=== PATIENT | male | born 1965 | race Native Hawaiian/Other Pacific Islander ===

== ENCOUNTER 2018-05-08 03:25 | Emergency (ER) | payer OTHER ==
[2018-05-08 03:54] VITALS: RESP 18
[2018-05-08] MEDS ORDERED: Sodium Chloride 0.9% 1,000 ML IV STA ×2 (04:08→05:51)
--- NOTE | 2018-05-08 04:38 | ED PDOC ---
HPI: Abdomen Time Seen by Provider: 05/08/18 04:07 Chief Complaint (Nursing): Abdominal Pain Chief Complaint (Provider): Abdominal Pain History Per: Patient History/Exam Limitations: no limitations Onset/Duration Of Symptoms: Hrs (x14) Outside of [place] travel?: Yes Other Location:: [facility] Current Symptoms Are (Timing): Still Present Context: Travel, Food Additional Complaint(s): 52 y/o Polish male with a Past medical history of edmondson's muscular dystrophy presents to the ED for evaluation of abdominal pain, vomiting and diarrhea. Patient states he is visiting from [facility] and was at [facility] [employer] where he at a hot dog. Patient reports of getting sick while at [place] at approximately 12 this afternoon. Patient subsequently took the [employer] to this area and states he developed non-bloody diarrhea on the train. Patient reports pain is becoming progressively worse. Patient states pain is right-sided and radiates to the back. Patient denies associated fever and medications for pain. In addition, patient reports he is usually largely wheelchair bound. History obtained from [employer]. PMD: In [place] Past Medical History Reviewed: Historical Data, Nursing Documentation, Vital Signs Vital Signs: Last Vital Signs Temp 98.5 F 05/08/18 03:52 Pulse 86 05/08/18 03:52 Resp 18 05/08/18 03:52 BP 168/86 H 05/08/18 03:52 Pulse Ox 97 05/08/18 03:52 - Medical History Other PMH: edmondson's muscular dystrophy - Surgical History Surgical History: No Surg Hx - Family History Family History: States: Unknown Family Hx - Social History Current smoker - smoking cessation education provided: No Alcohol: None Drugs: Denies - Home Medications Home Medications: Ambulatory Orders Medication Instructions Recorded Dicyclomine [Bentyl] 20 mg PO Q12 PRN #20 tab 05/08/18 Ondansetron ODT [Zofran ODT] 4 mg PO Q6H PRN #16 odt 05/08/18 - Allergies Allergies/Adverse Reactions: Allergies Allergy/AdvReac Type Severity Reaction Status Date / Time No Known Allergies Allergy Verified 05/08/18 03:54 Review of Systems ROS Statement: Except As Marked, All Systems Reviewed And Found Negative Constitutional: Negative for: Fever Gastrointestinal: Positive for: Vomiting, Abdominal Pain, Diarrhea Physical Exam - Reviewed Nursing Documentation Reviewed: Yes Vital Signs Reviewed: Yes - Physical Exam Appears: Positive for: Uncomfortable Head Exam: Positive for: ATRAUMATIC, NORMOCEPHALIC Skin: Positive for: Normal Color, Warm, Dry Eye Exam: Positive for: Normal appearance, EOMI, PERRL Neck: Positive for: Normal, Painless ROM Cardiovascular/Chest: Positive for: Regular Rate, Rhythm. Negative for: Murmur Respiratory: Positive for: Normal Breath Sounds. Negative for: Respiratory Distress Gastrointestinal/Abdominal: Positive for: Normal Exam, Tenderness (Tenderness to the right mid-abdominal region), Distended (Mild distention) - Laboratory Results Result Diagrams: 05/08/18 04:27 05/08/18 04:27 - ECG O2 Sat by Pulse Oximetry: 97 (RA) Pulse Ox Interpretation: Normal Medical Decision Making Medical Decision Making: Time: 1426 Impression: 52 y/o male with abdominal pain, vomiting and diarrhea Plan: -- CMP -- Lipase -- ED Urine Dipstick -- CBC with Differentials -- Bentyl 20 mg PO -- Sodium Chloride IV 1000 mls/hr -- Toradol 30 mg IV -- Zofran Inj IV 4 mg -- Heplock Insertion -- Urinalysis Time: 627 -- On re-evaluation, patient reports an improvement of symptoms. Labs demonstrate no clinically significant abnormalities. Patient is stable for discharge with a diagnosis of gastroenteritis. Scribe Attestation: Documented by Harjeet Padilla, acting as a scribe for Rogerio Morales MD. Provider Scribe Attestation: All medical record entries made by the Scribe were at my direction and personally dictated by me. I have reviewed the chart and agree that the record accurately reflects my personal performance of the history, physical exam, medical decision making, and the department course for this patient. I have also personally directed, reviewed, and agree with the discharge instructions and disposition. Disposition - Clinical Impression Clinical Impression: Gastroenteritis - Patient ED Disposition Is Patient to be Admitted: No Counseled Patient/Family Regarding: Studies Performed, Diagnosis, Rx Given - Disposition Disposition: Routine/Home Disposition Time: 06:28 Condition: STABLE Prescriptions: Dicyclomine [Bentyl] 20 mg PO Q12 PRN #20 tab PRN Reason: abdominal pain/diarrhea Ondansetron ODT [Zofran ODT] 4 mg PO Q6H PRN #16 odt PRN Reason: Nausea/Vomiting Instructions: Gastroenteritis (ED) Forms: [employer] (Indonesian)
[2018-05-08 05:07] LABS: BASO # 0.1 K/uL (0.0-0.2); BASO % 0.6 % (0.0-2.0); EOS # 0.2 K/uL (0.0-0.7); EOS % 1.6 % (0.0-4.0); LYMPH # 1.2 K/uL (1.0-4.3); LYMPH % 11.9 % (20.0-40.0); MEAN CELL VOLUME 90.8 fl (80.0-94.0); MEAN CORPUSCULAR HGB CONC 34.1 g/dL (33.0-37.0); MEAN PLATELET VOLUME 10.5 fl (7.2-11.7); MONO # 0.9 K/uL (0.0-0.8); MONO % 8.9 % (0.0-10.0); NEUT # 7.7 K/uL (1.8-7.0); RBC 5.82 Mil/uL (4.40-5.90); RED CELL DISTRIBUTION WIDTH 13.3 % (11.5-14.5)
[2018-05-08 05:50] LABS: ALB/GLOB RATIO 1.3 (1.0-2.1); ALBUMIN 4.7 g/dL (3.5-5.0); ALT/SGPT 181 U/L (21-72); AST/SGOT 174 U/L (17-59); BLOOD UREA NITROGEN 22 mg/dl (9-20); GFR NON-AFRICAN AMERICAN > 60; LIPASE 76 U/L (23-300)
[2018-05-08 06:49] LABS: SQUAMOUS EPITHIAL < 1 /hpf (0-5); URINE BILIRUBIN NEGATIVE (NEGATIVE); URINE BLOOD NEGATIVE (NEGATIVE); URINE CLARITY SLIGHTY-CLOUDY (Clear); URINE COLOR YELLOW (YELLOW); URINE GLUCOSE (UA) >=500 mg/dL (Normal); URINE LEUKOCYTE ESTERASE NEG Leu/uL (Negative); URINE PROTEIN 100 mg/dL (NEGATIVE); URINE UROBILINOGEN 0.2-1.0 mg/dL (0.2-1.0)
[2018-05-08 07:14] VITALS: BP 151/87; PULSE 70; TEMP 98.3; O2SAT 99
== END 2018-05-08 07:17 | disposition short-term general hospital (02) ==
LOC: H.ER 03:25
DX: K52.9 Noninfective gastroenteritis and colitis, unspecified (principal); G71.01 Duchenne or Becker muscular dystrophy; Z79.899 Other long term (current) drug therapy
CPT/HCPCS: 80053; 81003; 83690; 85025; 96374; 96375; 99284; J1885; J2405; J7030